=== PATIENT | female | born 1995 | race Caucasian/White ===

== ENCOUNTER 2016-11-09 17:07 | Emergency (ER) | payer BC ==
[2016-11-09] MEDS ORDERED: HYDROmorphone 0.5 MG/0.5 ML Syringe IVPUSH ONE ×2 (17:37→18:10)
[2016-11-09] MEDS ORDERED: Ondansetron 4 MG/2 ML SDV IVPUSH ONE (18:10)
--- NOTE | 2016-11-09 18:22 | EDM.PDOC ---
[id number] Complaint: DISLOCATED ELBOW Time Seen by Provider: 11/09/16 17:25 Source of Information: Reports: Patient, Family History Limitations: Reports: No Limitations - History of Present Illness INITIAL COMMENTS - FREE TEXT/NARRATIVE: pt was tubing and fell off of the tube and hit the water. She heard something snap. She is very uncomfortable at this time. Onset: Today Duration: Minutes: Location: Reports: Upper Extremity, Left Associated Symptoms: Reports: No Other Symptoms Left Elbow Pain Score (Numeric/FACES): 7 - Related Data Allergies Allergy/AdvReac Type Severity Reaction Status Date / Time No Known Allergies Allergy Verified 11/09/16 17:27 Home Meds: Home Meds Norgestimate-Ethinyl Estradiol [Mononessa 28 Tablet] 1 tab PO DAILY 11/09/16 [ History] Past Medical History - Past Surgical History HEENT Surgical History: Reports: Tonsillectomy Social & Family History - Tobacco Use Smoking Status *Q: Never Smoker - Recreational Drug Use Recreational Drug Use: No Review of Systems - Review of Systems Review Of Systems: See Below Constitutional: Reports: No Symptoms Eyes: Reports: No Symptoms Ears: Reports: No Symptoms Nose: Reports: No Symptoms Mouth/Throat: Reports: No Symptoms Respiratory: Reports: No Symptoms Cardiovascular: Reports: Lightheadedness GI/Abdominal: Reports: No Symptoms Genitourinary: Reports: No Symptoms Musculoskeletal: Reports: Other (painful rt elebow which is deformed. ) ED EXAM, GENERAL - Physical Exam Exam: See Below Free Text/Narrative:: pt was tubing and she fell in the [place] very hard and felt lik her elebow dislocated. She has been very uncomfortable since that time. Exam Limited By: No Limitations General Appearance: Alert, Anxious, Severe Distress Ears: Normal TMs Ear Exam: Right Ear: TM normal Nose: Normal Inspection Throat/Mouth: Normal Inspection Head: Atraumatic Neck: Normal Inspection Respiratory/Chest: No Respiratory Distress Extremities: Other ( left elebow is swollen and deformed and very uncomfortable. She does have a good pulse. ) Neurological: Alert, Oriented Course - Vital Signs Last Recorded V/S: Last Vital Signs Temp 37.7 C 11/09/16 17:25 Pulse 84 11/09/16 19:15 Resp 19 11/09/16 19:15 BP 138/78 11/09/16 19:15 Pulse Ox 98 11/09/16 19:15 - Orders/Labs/Meds Meds: Medications Discontinued Medications Generic Name Dose Route Start Last Admin Trade Name Sha PRN Reason Stop Dose Admin Hydromorphone HCl 0.5 mg 11/09/16 17:37 11/09/16 17:46 Dilaudid IVPUSH 11/09/16 17:38 0.5 mg ONETIME ONE Administration Hydromorphone HCl 0.5 mg 11/09/16 18:10 11/09/16 19:46 Dilaudid IVPUSH 11/09/16 18:11 Not Given ONETIME ONE Ondansetron HCl 4 mg 11/09/16 18:10 11/09/16 19:46 Zofran IVPUSH 11/09/16 18:11 Not Given ONETIME ONE Propofol Confirm 11/09/16 18:54 Diprivan 20 Ml Administered 11/09/16 18:55 Dose 200 mg .ROUTE .STK-MED ONE - Re-Assessments/Exams Free Text/Narrative Re-Assessment/Exam: 11/09/16 19:09 Don from anest[facility]ia sedated the pt. Without difficulty the elebow was put back in place. Pt continued to have a good pulse. A post splint was applied without difficulty 11/11/16 07:23 Dr odette Zapata will be in contact with her regardng further follow up. Departure - Departure Time of Disposition: 19:13 Disposition: Home, Self-Care 01 Condition: Fair Clinical Impression: Dislocation of left elbow - Discharge Information Instructions: Elbow Dislocation, [id number] Referrals: PCP,None [Primary Care Provider] - Forms: ED Department Discharge Care Plan Goals: Dr zapata to call and advise pt regarding follow up. Use the sling and post splint will be in place. elevate on a pillow and use ice over the elebow. norco 5/325 q6h prn for pain
[2016-11-09] MEDS ORDERED: Propofol 200 MG/20 ML SDV ONE (18:54)
[2016-11-09 19:18] VITALS: BP 138/78
--- NOTE | 2016-11-10 11:31 | CR ---
Left elbow pre and post reduction Additional review demonstrates posterior dislocation of the elbow. There is a chip fracture off the olecranon. Following closed reduction there is successful realignment. Impression: 1. Elbow dislocation with successful reduction. 2. Chip fracture off the olecranon.
== END 2016-11-09 19:45 | disposition home or self-care (01) ==
LOC: JP.ED 17:07
DX: S53.125A Posterior dislocation of left ulnohumeral joint, initial encounter (principal); Z98.890 Other specified postprocedural states; Z79.899 Other long term (current) drug therapy; W16.42XA Fall into unspecified water causing other injury, initial encounter; Y93.16 Activity, rowing, canoeing, kayaking, rafting and tubing
CPT/HCPCS: 24600; 73080; 96374; 99284; J1170; J2704